=== PATIENT | male | born 1990 | race African-American/Black ===

== ENCOUNTER 2016-09-13 22:26 | Emergency (ER) | payer SELFPAY ==
[~2016-09-13] VITALS: Ht 190.5 cm; Wt 106.6 kg
[2016-09-13 22:28] VITALS: BP 125/77
[2016-09-13] MEDS ORDERED: METRONIDAZOLE 500 MG TABLET. PO ONE (23:30)
[2016-09-13] MEDS ORDERED: AZITHROMYCIN 250 MG TABLET. PO ONE (23:30)
[2016-09-13] MEDS ORDERED: CEFTRIAXONE IM 250 MG VIAL. IM ONE (23:30)
[2016-09-13 23:40] LABS: BILIRUBIN,URINE NEGATIVE (NEG); GLUCOSE,URINE NEGATIVE (NEG); NITRITE,URINE NEGATIVE (NEG); PROTEIN,URINE NEGATIVE (NEG-TRACE); UROBILINOGEN,URINE 0.2 mg/dL (0.2 mg/dL)
[2016-09-14 00:04] LABS: BACTERIA,URINE 0 /HPF (0-FEW); RBC,URINE OCC /HPF (0-2); SQUAMOUS EPITHELIAL CELL,UR OCC /LPF
--- NOTE | 2016-09-14 00:15 | PHYS DOC ---
Past Medical History Past Medical History: No Pertinent History Past Surgical History: No Surgical History Smokin Pack Per Day Alcohol Use: Rarely Drug Use: Marijuana Adult General Chief Complaint Chief Complaint: SEXUALLY TRANSMITTED DISEASE HPI HPI Patient is a 26 year old male who presents with penile itching for 3 weeks. He also reports dysuria and urinary urgency. He denies any rash or lesions on the penis. He has not had an urinary frequency or hematuria. He denies penile discharge, testicular pain or swelling. He denies abdominal pain, nausea, vomiting, or fever. The patient is requesting STD check. He states that his sexual partner tested positive for Trichomonas. He does not use condoms. He does not have a PCP. Review of Systems Review of Systems Constitutional: Denies fever or chills. [] Eyes: Denies change in visual acuity, redness, or eye pain. [] HENT: Denies ear pain, nasal congestion or sore throat. [] Respiratory: Denies cough or shortness of breath. [] Cardiovascular: Denies chest pain, palpitations or edema. [] GI: Denies abdominal pain, nausea, vomiting, bloody stools or diarrhea. [] : Denies hematuria or urinary frequency. Denies testicular pain or swelling, or penile discharge. Reports dysuria, urinary urgency, and penile itching. Musculoskeletal: Denies back pain or joint pain. [] Integument: Denies rash or skin lesions. [] Neurologic: Denies headache, focal weakness or sensory changes. [] Endocrine: Denies polyuria or polydipsia. [] Psych: Denies anxiety or depression. [] All systems reviewed and negative unless otherwise stated in the HPI. Current Medications Current Medications Current Medications Medications (Trade) Dose Ordered Sig/Sofia Start Time Stop Time Status Last Admin Dose Admin Azithromycin (Zithromax) 1,000 mg 1X ONCE 09/13/16 23:30 09/13/16 23:31 DC Ceftriaxone Sodium (Rocephin Im) 250 mg 1X ONCE 09/13/16 23:30 09/13/16 23:31 DC Metronidazole (Flagyl) 2,000 mg 1X ONCE 09/13/16 23:30 09/13/16 23:31 DC Allergies Allergies Allergies Coded Allergies Type Severity Reaction Last Updated Verified I S O L A T I O N *CONTACT* Allergy Unknown 02/26/15 Yes No Known Medication Allergies Allergy Unknown 02/26/15 Yes Physical Exam Physical Exam Constitutional: Well developed, well nourished, no acute distress, non-toxic appearance. [] HENT: Normocephalic, atraumatic, oropharynx moist. [] Eyes: PERRLA, EOMI, conjunctiva normal, no discharge. [] Neck: Normal range of motion, no tenderness, supple, no stridor. [] Cardiovascular: Heart rate regular rhythm, no murmur. [] Lungs & Thorax: Bilateral breath sounds clear to auscultation without wheezes, rales, or rhonchi. [] Abdomen: Bowel sounds normal, soft, no tenderness, no masses, no pulsatile masses. [] Skin: Warm, dry, no erythema, no rash. [] Back: No midline tenderness, no CVA tenderness. [] Extremities: No tenderness, ROM intact, no edema. Distal pulses equal bilaterally. [] Neurologic: Alert and oriented X 3, normal motor function, normal sensory function, no focal deficits noted. [] Psychologic: Affect normal, judgement normal, mood normal. [] Current Patient Data Vital Signs Vital Signs Date Time Temp Pulse Resp B/P Pulse Ox O2 Delivery O2 Flow Rate FiO2 09/13/16 22:28 98.1 78 20 99 Room Air 98.1 Lab Values Laboratory Tests Test 09/13/16 23:30 Urine Collection Type Unknown Urine Color Yellow Urine Clarity Clear Urine pH 6.0 Urine Specific Em[place] 1.020 Urine Protein Negativemg/dL (NEG-TRACE) Urine Glucose (UA) Negativemg/dL (NEG) Urine Ketones (Stick) Negativemg/dL (NEG) Urine Blood Negative (NEG) Urine Nitrite Negative (NEG) Urine Bilirubin Negative (NEG) Urine Urobilinogen Dipstick 0.2mg/dL (0.2 mg/dL) Urine Leukocyte Esterase Negative (NEG) Urine RBC Occ/HPF (0-2) Urine WBC 1-4/HPF (0-4) Urine Squamous Epithelial Cells Occ/LPF Urine Bacteria 0/HPF (0-FEW) Urine Mucus Mod/LPF EKG EKG [] Radiology/Procedures Radiology/Procedures [] Course & Med Decision Making Course & Med Decision Making Pertinent Labs and Imaging studies reviewed. (See chart for details) The patient was treated with Rocephin, azithromycin, and Flagyl for gonorrhea, Chlamydia, and Trichomonas. Urine was negative for infection. Dragon Disclaimer Dragon Disclaimer This electronic medical record was generated, in whole or in part, using a voice recognition dictation system. Departure Departure Impression: Primary Impression: Concern about STD in male without diagnosis Disposition: 01 HOME, SELF-CARE Condition: STABLE Referrals: NO PCP (PCP) Patient Instructions: Sexually Transmitted Disease, [id number] Additional Instructions: Your urine was negative for a urinary tract infection. Your urine will be sent for testing for gonorrhea and chlamydia. We will not have these results back for 2-3 days. You will receive a phone call if your test result is positive. You were treated for gonorrhea, Chlamydia, and Trichomonas in the emergency department today. Please do not have sex for one week to be sure that the treatment is complete. Please use condoms to protect yourself from STDs in the future. Return to the emergency department if you have any new or concerning symptoms. ANNA BUSTAMANTE Sep 14, 2016 00:15
== END 2016-09-14 00:45 | disposition home or self-care (01) ==
LOC: ER 22:26
DX: Z20.2 Contact with and (suspected) exposure to infections with a predominantly sexual mode of transmission (principal); R30.0 Dysuria; R39.15 Urgency of urination; F12.10 Cannabis abuse, uncomplicated; F17.200 Nicotine dependence, unspecified, uncomplicated; Z91.041 Radiographic dye allergy status
CPT/HCPCS: 81001; 87491; 87591; 96372; 99284; J0696; Q0144

== ENCOUNTER 2016-11-25 13:35 | Emergency (ER) | payer SELFPAY ==
[~2016-11-25] VITALS: Ht 190.5 cm; Wt 113.4 kg
[2016-11-25 13:49] VITALS: BP 134/73
[2016-11-25] MEDS ORDERED: AZITHROMYCIN 250 MG TABLET. PO ONE (14:15)
[2016-11-25] MEDS ORDERED: metroNIDAZOLE 500 MG TABLET PO ONE (14:15)
[2016-11-25] MEDS ORDERED: cefTRIAXone IM 250 MG VIAL IM ONE (14:15)
[2016-11-25 14:16] LABS: BILIRUBIN,URINE NEGATIVE (NEG); GLUCOSE,URINE NEGATIVE (NEG); NITRITE,URINE NEGATIVE (NEG); PROTEIN,URINE NEGATIVE (NEG-TRACE); UROBILINOGEN,URINE 0.2 mg/dL (0.2 mg/dL)
--- NOTE | 2016-11-25 14:20 | PHYS DOC ---
Past Medical History Past Medical History: No Pertinent History Past Surgical History: No Surgical History Alcohol Use: Rarely Drug Use: Marijuana Adult General Chief Complaint Chief Complaint: SEXUALLY TRANSMITTED DISEASE HPI HPI Patient is a 26 year old male who presents for STD concerns. Patient would like to be tested and treated. He states he was exposed. He has no symptoms. Review of Systems Review of Systems Constitutional: Denies fever or chills [] Eyes: Denies change in visual acuity, redness, or eye pain [] HENT: Denies nasal congestion or sore throat [] GI: Denies abdominal pain, nausea, vomiting, bloody stools or diarrhea [] : STD concern Musculoskeletal: Denies back pain or joint pain [] Integument: Denies rash or skin lesions [] Neurologic: Denies headache, focal weakness or sensory changes [] Endocrine: Denies polyuria or polydipsia [] Current Medications Current Medications Current Medications Medications (Trade) Dose Ordered Sig/Sofia Start Time Stop Time Status Last Admin Dose Admin Azithromycin (Zithromax) 1,000 mg 1X ONCE 11/25/16 14:15 11/25/16 14:16 11/25/16 14:13 1,000 MG Ceftriaxone Sodium (Rocephin Im) 250 mg 1X ONCE 11/25/16 14:15 11/25/16 14:16 11/25/16 14:16 250 MG Metronidazole (Flagyl) 2,000 mg 1X ONCE 11/25/16 14:15 11/25/16 14:16 11/25/16 14:13 2,000 MG Allergies Allergies Allergies Coded Allergies Type Severity Reaction Last Updated Verified I S O L A T I O N *CONTACT* Allergy Unknown 02/26/15 Yes No Known Medication Allergies Allergy Unknown 02/26/15 Yes Physical Exam Physical Exam Constitutional: Well developed, well nourished, no acute distress, non-toxic appearance. [] HENT: Normocephalic, atraumatic, bilateral external ears normal, oropharynx moist, no oral exudates, nose normal. [] Abdomen: Bowel sounds normal, soft, no tenderness, no masses, no pulsatile masses. [] Skin: Warm, dry, no erythema, no rash. [] Back: No tenderness, no CVA tenderness. [] Extremities: No tenderness, no cyanosis, no clubbing, ROM intact, no edema. [] Neurologic: Alert and oriented X 3, normal motor function, normal sensory function, no focal deficits noted. [] Psychologic: Affect normal, judgement normal, mood normal. [] Current Patient Data Vital Signs Vital Signs Date Time Temp Pulse Resp B/P (MAP) Pulse Ox O2 Delivery O2 Flow Rate FiO2 11/25/16 13:49 98.1 72 19 98 Room Air 98.1 EKG EKG [] Radiology/Procedures Radiology/Procedures [] Course & Med Decision Making Course & Med Decision Making Pertinent Labs and Imaging studies reviewed. (See chart for details) This is a 26-year-old male patient who presents to the ED for STD concerns. Urine was sent to lab. Patient was treated prophylaxis with Flagyl, azithromycin and Rocephin. Follow-up with the health department for further STD concerns. Dragon Disclaimer Dragon Disclaimer This electronic medical record was generated, in whole or in part, using a voice recognition dictation system. Departure Departure Impression: Primary Impression: Concern about STD in male without diagnosis Disposition: HOME, SELF-CARE Condition: STABLE Referrals: NO PCP (PCP) Follow-up with the health department for further STD concerns Patient Instructions: Sexually Transmitted Diseases-SportsMed Additional Instructions: You were seen for STD concerns and were treated prophylaxis, we will contact you in 3 days if your results were positive. If you don't hear from us in the next 3-5 days the results are probably negative. We highly recommend you contact all your sex partners, let them know you were treated for STDs and ask them to seek treatment too. AYAN HARLEY APRN Nov 25, 2016 14:20
[2016-11-25 14:25] LABS: BACTERIA,URINE 0 /HPF (0-FEW); RBC,URINE 0 /HPF (0-2); WBC,URINE OCC /HPF (0-4)
== END 2016-11-25 14:25 | disposition home or self-care (01) ==
LOC: ER 13:35
DX: Z11.3 Encounter for screening for infections with a predominantly sexual mode of transmission (principal); F12.10 Cannabis abuse, uncomplicated; Z91.041 Radiographic dye allergy status
CPT/HCPCS: 81001; 87491; 87591; 96372; 99284; J0696; Q0144